=== PATIENT | male | born 1945 | race Caucasian/White ===

== ENCOUNTER → 2020-08-06 | Outpatient (CLI) | payer MEDICARE, OTHER ==
[2019-12-11 15:00] VITALS: BP 139/65
[~2020-08-06] MED LIST: ASPI-630 PO; ATORVASTATIN CA80 MG PO; BUDE10.2 IH; CARV12.511 PO; CEPH500T PO; CLOP75TA PO; EZET10TA20 PO; FURO20TA3 PO; FURO40TA4 PO; METO-247 PO; MOME13HF IH; MULT-445 PO; OMEP20CA16 PO; SACU1TAB PO; SPIR25TA5 PO; TAMS0.4C2 PO; TIOT18CA IH; VENTOLIN HFA18 GM INH
== END ==
LOC: LAB 08:50
PROVIDERS: ATTEND Dentist Oral and Maxillofacial Surgery
DX: Z01.812 Encounter for preprocedural laboratory examination (principal); Z20.822 Contact with and (suspected) exposure to COVID-19; K02.63 Dental caries on smooth surface penetrating into pulp
CPT/HCPCS: U0003; U0005

== ENCOUNTER 2020-08-07 11:29 | Day surgery (SDC) | payer MEDICARE, OTHER ==
[~2020-08-07] VITALS: Ht 172.7 cm; Wt 90.0 kg
[~2020-08-07 11:29] MED LIST changes: +CLINDAMYCIN 900MG PREMIX 50 ML IV PRN; +HYDROmorphone 2 MG/ML VIAL IVP PRN; +IV RINGERS,LACTATED 1000ML 1,000 ML IV SCH; +LIDOCAINE 2% PF 5 ML VIAL. ONE; +MORPHINE SULFATE 2 MG/ML VIAL. IVP PRN; +PROCHLORPERAZINE 10 MG/2 ML VIAL. IVP PRN; +PROPOFOL 10 MG/ML (20ML) VIAL. IV ONE; +ROCURONIUM 50 MG/5 ML VIAL. ONE; +fentaNYL PF VIAL 100 MCG/2 ML VIAL IVP PRN; +fentaNYL PF VIAL 100 MCG/2 ML VIAL ONE
[2020-08-07] MEDS ORDERED: CHLORHEXIDINE 0.12% 15 ML MOUTHWASH. ONE (12:41)
[2020-08-07] MEDS ORDERED: GELATIN SPONGE SIZE 100. ONE (12:41)
[2020-08-07] MEDS ORDERED: BUPIVACAINE-EPI 0.5% 30 ML VIAL KIT. ONE (12:42)
[2020-08-07] MEDS ORDERED: DEXAMETHASONE SOD PHOS 4 MG/ML VIAL ONE (13:14)
[2020-08-07] MEDS ORDERED: ONDANSETRON PF 4 MG/2 ML VIAL. ONE (13:14)
[2020-08-07] MEDS ORDERED: SEVOFLURANE 61 TO 120 MINUTES. IH ONE (13:16)
[2020-08-07] MEDS ORDERED: PHENYLEPHRINE in 0.9% NACL PF 1 MG/10 ML SYRINGE. IV ONE ×2 (13:16→13:37)
[2020-08-07] MEDS ORDERED: NEOSTIGMINE METHYLSULFATE 5 MG/5 ML SYRINGE. ONE (13:35)
[2020-08-07] MEDS ORDERED: GLYCOPYRROLATE 1 MG/5 ML VIAL. ONE (13:35)
[2020-08-07] MEDS ORDERED: ePHEDrine PF IN SALINE 50 MG/10 ML SYRINGE. IV ONE (13:37)
--- NOTE | 2020-08-07 14:24 | PDOC4 ---
OPERATIVE NOTE Date: Date: Aug 07, 2020 Pre-Op Diagnosis: COPD HTN CAD GERD BOUCHRA Caries, non restorable teeth #18, 21, 22, 23,24, 25, 26, 27, 28,29 Post-Op Diagnosis: same Procedure Performed: surgical removal of Carious, non restorable teeth #18, 21, 22, 23,24, 25, 26, 27, 28,29 LR/LL Alveoloplasty Surgeon: camym Anesthesia Type: hapgood Blood Loss: 50 Specimans Obtained: teeth disposed of in OR Findings: see dictation Complications: none Operative Note: see dictation CHELSIE HERRERA DMD Aug 07, 2020 14:23
[2020-08-07 15:24] VITALS: BP 125/51
--- NOTE | 2020-08-07 15:27 | OP ---
DATE OF SURGERY: 08/07/2020 IDENTIFYING DATA: A 74-year-old male. OPERATING SERVICE: [employer]. ATTENDING PHYSICIAN: Kamari Ackerman DMD, MD PREOPERATIVE DIAGNOSES: Chronic obstructive pulmonary disease, coronary artery disease, hypertension, obstructive sleep apnea, caries, nonrestorable teeth #18, 21, 22, 23, 24, 25, 26, 27, 28, 29. PROCEDURES PERFORMED: Surgical removal of nonrestorable teeth #18, 21, 22, 23, 24, 25, 26, 27, 28, 29 and lower right and lower left alveoloplasty. BRIEF HISTORY: The patient was referred to my clinic by Dr. Kelly for removal of nonrestorable teeth for future denture fabrication. History and physical was performed in our clinic. Considering his significant reliance upon supplemental oxygen, he was not suitable for a candidate in our clinic. He requested to be handled as best as possible. We escalated the setting of care to the operating theater. History and physical was performed in our clinic, permit was obtained and the patient was then scheduled for surgery. His primary care physician also agreed with this plan of care. DRAINS PLACED: None. ESTIMATED BLOOD LOSS: Approximately 50 mL. SPECIMEN SENT: None. Teeth were all disposed off in the OR. COMPLICATIONS: None noted at the time of surgery. OPERATIVE DESCRIPTION: After the history and physical was updated in the preoperative holding area, the patient was transported by the anesthesia service to the operating suite, placed in the supine position. General anesthesia was induced. The patient was then intubated without complication. The tube was secured in the upper left face. A timeout was initiated and all surgical staff was in agreement. The patient was then prepped and draped in the normal sterile fashion. All pressure points had been checked. Surgery began with the placement of a moistened throat pack in the oropharynx. Local anesthesia in the form of 20 mL of 0.5% Marcaine, 1:200,000 epinephrine were administered into the proposed surgical areas. An additional 10 mL for a total of 30 mL were administered at the culmination of the procedure. Moistened bite block was placed into the mouth. A 15 blade was utilized to create a full-thickness mucoperiosteal flap in the lower right and lower left quadrants. A full thickness mucoperiosteal flap was reflected buccally. All of the teeth were then luxated, elevated and extracted, specifically teeth #18, 21, 22, 23, 24, 25, 26, 27, 28, 29. The alveoloplasty was then performed with hand instruments with rongeurs and smoothed with bone file and then all sites were curetted and lavaged with copious normal sterile saline. The sites were then oversewn with 3-0 chromic gut sutures in a running locked fashion. The sites were previously packed with pieces of Gelfoam for hemostasis, also Dermabond was placed over the wound to help with hemostasis. The wounds were found to be hemostatic. The oral cavity was then lavaged and suctioned. The moistened throat pack was then removed and then an OG was passed and the stomach was then decompressed. The patient was then returned to the care of anesthesia where he was awakened and extubated without complication and transported to the PACU in stable condition. XIMENA DR: Melchor TID: [id number]
== END 2020-08-07 15:57 | disposition home or self-care (01) ==
LOC: SURG 11:29
PROVIDERS: ATTEND Dentist Oral and Maxillofacial Surgery
DX: K02.63 Dental caries on smooth surface penetrating into pulp (principal); J44.9 Chronic obstructive pulmonary disease, unspecified; I25.10 Atherosclerotic heart disease of native coronary artery without angina pectoris; G47.33 Obstructive sleep apnea (adult) (pediatric); I11.0 Hypertensive heart disease with heart failure; I50.9 Heart failure, unspecified; E78.00 Pure hypercholesterolemia, unspecified; E66.9 Obesity, unspecified; E11.9 Type 2 diabetes mellitus without complications; K21.9 Gastro-esophageal reflux disease without esophagitis; Z86.73 Personal history of transient ischemic attack (TIA), and cerebral infarction without residual deficits; Z87.891 Personal history of nicotine dependence; Z79.899 Other long term (current) drug therapy; Z98.890 Other specified postprocedural states; Z72.89 Other problems related to lifestyle; Z88.0 Allergy status to penicillin
CPT/HCPCS: 41874; 41899; A4213; A4364; A4930; J1100; J2370; J2405; J2704; J2710; J3010; J3490; A4657